=== PATIENT | male | born 1985 | race Caucasian/White ===

== ENCOUNTER 2017-06-05 15:01 | Emergency (ER) | payer OTHER ==
[2017-06-05] MEDS ORDERED: AMPICILLIN/SULBACTAM 3 GM in SODIUM CHLORIDE 0.9% MINIBAG 100 ML IV STA (17:49)
[2017-06-05] MEDS ORDERED: SODIUM CHLORIDE 0.9% 1,000 ML IV ONE (17:49)
[2017-06-05] MEDS ORDERED: KETOROLAC 30 MG/ML VIAL IVP STA (17:49)
[2017-06-05] MEDS ORDERED: DEXAMETHASONE 10 MG/ML VIAL IVP STA (17:49)
--- NOTE | 2017-06-05 17:52 | ED Physician Documentation ---
History of Present Illness - Stated complaint Stated Complaint: SYNCOPE - Chief complaint Chief Complaint: General - History obtained from History obtained from: Patient - History of Present Illness Timing: Other (2 days of sore throat with right tonsillar swelling especially, fevers, and felt dizzy and weak in the shower today without syncope.) Review of Systems Ten Systems: 10 systems reviewed and negative Constitutional: reports: Fever, Chills, Fatigue Nose: denies: Rhinorrhea / runny nose, Congestion Throat: reports: Sore throat Respiratory: denies: Dyspnea, Cough PD PAST MEDICAL HISTORY - Past Surgical History Past Surgical History: No - Present Medications Home Medications: Ambulatory Orders Medication Instructions Recorded Confirmed Amox/Clav 875/125 [Augmentin] 1 each PO Q12H #20 tablet 06/05/17 Ibuprofen [Motrin] 800 mg PO Q8H PRN #30 tablet 06/05/17 predniSONE [Deltasone] 60 mg PO DAILY 5 Days 06/05/17 - Allergies Allergies/Adverse Reactions: Allergies Allergy/AdvReac Type Severity Reaction Status Date / Time No Known Drug Allergies Allergy Verified 06/05/17 15:11 - Social History Does the pt smoke?: Yes Smoking Status: Current every day smoker - Immunizations Immunizations are current?: Yes PD ED PE NORMAL - Vitals Vital signs reviewed: Yes - General General: Alert and oriented X 3, No acute distress - HEENT HEENT: Other (His voice is normal, not muffled, he does have very red tonsils with some asymmetry, right greater than left with exudates, however no obvious peritonsillar abscess that would benefit from incision and drainage or aspiration at this time.) - Neck Neck: Supple, no meningeal sign, No bony TTP - Cardiac Cardiac: RRR, No murmur - Respiratory Respiratory: No respiratory distress, Clear bilaterally - Abdomen Abdomen: Non tender - Derm Derm: No rash - Neuro Neuro: Alert and oriented X 3, Normal speech - Psych Psych: Normal mood, Normal affect Results - Vitals Vitals: Vital Signs - 24 hr 06/05/17 15:08 Temperature 38.2 C H Heart Rate 96 Respiratory 20 Rate Blood Pressure 140/90 H O2 Saturation 97 Oxygen O2 Source Room air PD MEDICAL DECISION MAKING - ED course ED course: 31-year-old gentleman with a tonsillitis and asymmetry but nothing that would benefit from incision and drainage or aspiration at this juncture. He was administered IV fluids, Decadron, and Unasyn in the emergency department. The patient and family were counseled as to the diagnosis and need for follow- up. I counseled the patient with regard to signs and symptoms that would necessitate an urgent reevaluation in the emergency department. They understand they are welcome to return at any time if worse or if not improving as expected. This document was made in part using voice recognition software. While efforts are made to proofread this documents, sound alike and grammatical errors may occur. Departure - Departure Disposition: Home, Self Care Clinical Impression: Peritonsillar cellulitis Condition: Good Record reviewed to determine appropriate education?: Yes Instructions: ED Peritonsillar Infec Abx No I andD Prescriptions: Amox/Clav 875/125 [Augmentin] 1 each PO Q12H #20 tablet predniSONE [Deltasone] 60 mg PO DAILY 5 Days Ibuprofen [Motrin] 800 mg PO Q8H PRN #30 tablet PRN Reason: PAIN &/OR FEVER Comments: Return in 2 days if not better, anytime if worse. Follow-up with your flight physician in 2 days as well. Your blood pressure was elevated today on check into the emergency department. This does not mean that you have hypertension, it is a common phenomenon to come to the emergency department and have elevated blood pressure. I recommend that she see your primary care physician within the week to have it rechecked when you are feeling better.
[2017-06-05 17:55] VITALS: BP 133/96
[2017-06-05] MEDS ORDERED: DEXAMETHASONE 10 MG/ML VIAL ONE (17:58)
[2017-06-05] MEDS ORDERED: KETOROLAC 30 MG/ML VIAL ONE (17:58)
== END 2017-06-05 19:21 | disposition home or self-care (01) ==
LOC: ED 15:01
DX: J36 Peritonsillar abscess (principal)
CPT/HCPCS: 87070; 96374; 96375; 99283; 99284